=== PATIENT | female | born 1960 | race Caucasian/White ===

== ENCOUNTER 2023-01-23 06:42 | Outpatient (CLI) | payer OTHER | END 2023-01-23 14:31 | disposition home or self-care (01) | LOC: MRI 06:42 | PROVIDERS: ATTEND Orthopaedic Surgery | DX: M25.512 Pain in left shoulder (principal) | CPT/HCPCS: 73221 ==

== ENCOUNTER 2023-08-19 09:21 | Outpatient (CLI) | payer OTHER | END 2023-08-20 16:22 | disposition home or self-care (01) | LOC: RAD 09:21 | PROVIDERS: ATTEND Orthopaedic Surgery | DX: M25.512 Pain in left shoulder (principal) ==